=== PATIENT | male | born 2000 | race Caucasian/White ===

== ENCOUNTER 2022-06-13 22:29 | Emergency (ER) | payer SELFPAY ==
[~2022-06-13] VITALS: Ht 180.3 cm; Wt 122.5 kg
--- NOTE | 2022-06-13 22:30 | NUR ---
WITH PATIENT FOR MSE.
[2022-06-13] MEDS ORDERED: NACL 0.9% 1,000 ML IV ONE (22:45)
[2022-06-13] MEDS ORDERED: ALBUTEROL SULFATE 0.083% 2.5 MG/3 ML VIAL.NEB INH ONE (22:45)
[2022-06-13] MEDS ORDERED: KETOROLAC TROMETHAMINE 30 MG VIAL IVP ONE (22:45)
[2022-06-13 22:47] VITALS: BP_SYST 134
--- NOTE | 2022-06-13 22:53 | NUR ---
Patient triaged and placed in hallway. VS checked and patient appears in mild distress at this time. Accompanied by self, MD notified of need for MSE.
--- NOTE | 2022-06-13 23:00 | NUR ---
PT FROM HOME WITH C/O SOB, COUGH, FEVER X 3DAYS. PT ON ARRIVAL NOTED WITH INCREASED WORK OF BREATHING AND TACHYPENIC. PT FEVER OF 101.9. MADE AWARE.
[2022-06-14] MEDS ORDERED: MORPHINE 4 MG INJ. 4 MG/ML VIAL IVP ONE (00:30)
--- NOTE | 2022-06-14 00:30 | NUR ---
MADE AWARE OF TEMP OF 101.7
[2022-06-14] MEDS ORDERED: OSEL75CA PO (00:58)
[2022-06-14] MEDS ORDERED: ONDANSETRON HCL 4 MG/2 ML VIAL IVP ONE (01:00)
[2022-06-14] MEDS ORDERED: ONDANSETRON HCL 4 MG/2 ML VIAL ONE (01:01)
[2022-06-14] MEDS ORDERED: ACETAMINOPHEN 325 MG TABLET PO ONE (01:15)
[2022-06-14 01:44] VITALS: BP_SYST 112
--- NOTE | 2022-06-14 01:44 | NUR ---
Patient given written and verbal discharge instructions and verbalizes understanding. ER DR. PETERSON discussed with patient the results and treatment provided. Patient in stable condition. ID arm band removed. IV catheter removed intact and dressing applied, no active bleeding. Rx of TAMIFLU given. Patient educated on pain management and to follow up with PMD. Pain Scale 0. Opportunity for questions provided and answered. Medication side effect fact sheet provided.
== END 2022-06-14 01:44 | disposition home or self-care (01) ==
LOC: SED 22:29
DX: J11.1 Influenza due to unidentified influenza virus with other respiratory manifestations (principal); Z20.822 Contact with and (suspected) exposure to COVID-19
CPT/HCPCS: 36415; 71046; 94640; 99284; 87804 ×2; 87426; 96361; 96374; 96375; J7613; J1885; J2405; J2270; J7030

== ENCOUNTER 2022-08-27 06:55 | Outpatient (CLI) | payer OTHER ==
[~2022-08-27 06:55] MED LIST: OSEL75CA PO
[2022-08-27 09:04] LABS: BASOPHILS # (AUTO) 0.1 K/uL (0.0-0.2); BASOPHILS % (AUTO) 0.8 % (0.0-2.0); EOSINOPHILS # (AUTO) 0.4 K/uL (0.0-0.4); EOSINOPHILS % (AUTO) 5.5 % (0.0-4.0); HEMATOCRIT 45.1 % (36-54); HEMOGLOBIN 15.5 g/dL (14.0-18.0); LYMPHOCYTES # (AUTO) 2.4 K/uL (1.0-5.5); MEAN CORPUSCULAR HEMOGLOBIN 31 pg (27-31); MEAN CORPUSCULAR HGB CONC 34 % (32-36); MEAN CORPUSCULAR VOLUME 89 fL (79.0-98.0); MONOCYTES # (AUTO) 0.7 K/uL (0.0-1.0); MONOCYTES % (AUTO) 10.5 % (1.7-9.3); NEUTROPHILS # (AUTO) 3.3 K/uL (1.8-7.7); NEUTROPHILS % (AUTO) 48.2 % (40.0-70.0); PLATELET COUNT (AUTO) 201 K/uL (130-430); RED BLOOD CELL COUNT(AUTO) 5.05 MIL/uL (4.2-6.2); RED CELL DISTRIBUTION WIDTH 13.4 % (9.0-15.0); WHITE BLOOD COUNT (AUTO) 6.8 K/uL (4.8-10.8)
[2022-08-27 09:20] LABS: ALBUMIN 3.8 g/dL (3.4-4.8); CALCIUM 8.6 mg/dL (8.4-11.0); CREATININE 0.79 mg/dL (0.55-1.30); FREE T4 (FREE THYROXINE) 0.9 ng/dL (0.6-1.6); THYROID STIMULATING HORMONE 2.6 uIu/mL (0.34-4.82); TOTAL BILIRUBIN 0.7 mg/dL (0.0-1.0)
[2022-08-28 06:06] LABS: HSV 1 IgG, TYPE SPECIFIC <0.91 index (0.00-0.90); HSV 2 IgG, TYPE SPECIFIC <0.91 index (0.00-0.90)
[2022-08-28 08:07] LABS: HEPATITIS C VIRUS AB 0.1 s/co ratio (0.0-0.9); TESTOSTERONE, TOTAL SERUM 563 ng/dL (264-916)
== END 2022-08-27 20:14 | disposition home or self-care (01) ==
LOC: SLB 06:55
DX: Z00.00 Encounter for general adult medical examination without abnormal findings (principal); Z13.9 Encounter for screening, unspecified; E66.9 Obesity, unspecified; F90.8 Attention-deficit hyperactivity disorder, other type; E55.9 Vitamin D deficiency, unspecified
CPT/HCPCS: 36415; 80053; 80061; 82306; 83037; 84403; 84439; 84443; 85025; 86592; 86695; 86696; 86803; 87491

== ENCOUNTER 2022-10-31 01:19 | Emergency (ER) | payer OTHER ==
[~2022-10-31] VITALS: Ht 180.3 cm; Wt 106.6 kg
[2022-10-31 01:20] VITALS: BP_SYST 141
--- NOTE | 2022-10-31 01:20 | NUR ---
Patient to ER bed CH1 to gown for evaluation. Side rails up.
--- NOTE | 2022-10-31 01:23 | NUR ---
DR. BRUSH WITH PATIENT FOR [facility] [place].
--- NOTE | 2022-10-31 01:25 | NUR ---
PT FROM WORK WITH C/O SORE THROAT X COUPLE OF DAYS. PT STATES HE TESTED POSITIVE FOR STREP THROAT. STATES HE "FEELS DEHYDRATED." HR OF 104, MADE AWARE.
[2022-10-31] MEDS ORDERED: NACL 0.9% 1,000 ML IV ONE (01:30)
[2022-10-31] MEDS ORDERED: KETOROLAC TROMETHAMINE 15 MG VIAL IVP ONE (01:30)
[2022-10-31] MEDS ORDERED: DEXAMETHASONE SOD PHOSPHATE 10 MG/ML VIAL IVP ONE (01:30)
[2022-10-31] MEDS ORDERED: AMOX500C2 PO (01:40)
[2022-10-31 02:17] VITALS: BP_SYST 141
--- NOTE | 2022-10-31 02:17 | NUR ---
Patient given written and verbal discharge instructions and verbalizes understanding. ER DR. BRUSH discussed with patient the results and treatment provided. Patient in stable condition. ID arm band removed. IV catheter removed intact and dressing applied, no active bleeding. Rx of AMOXICILLIN given. Patient educated on pain management and to follow up with PMD. Pain Scale 0. Opportunity for questions provided and answered. Medication side effect fact sheet provided.
== END 2022-10-31 02:17 | disposition home or self-care (01) ==
LOC: SED 01:19
DX: J02.0 Streptococcal pharyngitis (principal); Z91.040 Latex allergy status; Z79.899 Other long term (current) drug therapy
CPT/HCPCS: 99284; 96374; 96361; 96375; J1100; J1885; J7030